=== PATIENT | female | born 1950 | race Caucasian/White ===

== ENCOUNTER → 2020-10-01 | Outpatient (CLI) | payer BC ==
--- NOTE | 2020-10-01 21:55 | MR ---
EXAMINATION TYPE: MR shoulder LT wo con DATE OF EXAM: 10/01/2020 COMPARISON: Radiographs 05/12/2020. HISTORY: LT Shoulder pain TECHNIQUE: Multiplanar, multisequence imaging of the left shoulder is performed without contrast. FINDINGS: Rotator Cuff: Moderate to high-grade articular surface, partial thickness tear of the supraspinatus t endon medially to anterior fibers on the background of moderate tendinosis. There is also moderate gr ayah partial-thickness tear of the subscapularis tendon cranial fibers. The infraspinatus and teres mi nor tendons are grossly intact. No significant muscular edema or atrophy. Acromioclavicular Joint: Moderate osteoarthritis. Glenohumeral Joint: Moderate osteoarthritis. Labrum: Degenerative tear of the superior anterior glenoid labrum. Biceps Tendon: The long head of biceps is in normal location within bicipital groove. Bone marrow signal: Mild to moderate degenerative cystic changes within the humeral head. Otherwise n o focal abnormal marrow signal is appreciated. Other: Small fluid within the subacromial subdeltoid bursa and moderate fluid within the subcoracoid bursa. IMPRESSION: Moderate to high-grade partial thickness tear of the supraspinatus tendon. Moderate grade partial-thickness tear of the subscapularis tendon. Associated bursitis.
== END | disposition home or self-care (01) ==
LOC: RADMRIMAIN 13:07
PROVIDERS: ATTEND Orthopaedic Surgery
DX: M75.112 Incomplete rotator cuff tear or rupture of left shoulder, not specified as traumatic (principal); M75.52 Bursitis of left shoulder

== ENCOUNTER → 2020-10-24 | Day surgery (SDC) | payer BC ==
[2020-10-22 13:33] VITALS: BMI 34.1
--- NOTE | 2020-10-23 10:54 | HP ---
HISTORY AND PHYSICAL CHIEF COMPLAINT: Left shoulder pain. 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 She notes she was getting something out of her dresser and felt a sharp pain. She has had pain with overhead use and at night ever since. She has tried medications in addition to a previous injection and therapy with persistence of her symptoms. PAST MEDICAL HISTORY: Significant for reflux disease, hypothyroidism, and arthritis. PAST SURGICAL HISTORY: Significant for hysterectomy, previous hip surgery, lumbar spine surgery and intestinal bypass. CURRENT MEDICATIONS: 1. Omeprazole. 2. Synthroid. 3. Tramadol. 4. Vitamin D. ALLERGIES: She has allergies to TUBERCULIN. FAMILY HISTORY: Significant for heart disease and diabetes along with cancer. SOCIAL HISTORY: Negative for current tobacco or alcohol use. REVIEW OF SYSTEMS: Sixteen-point review of systems otherwise reviewed and is noncontributory. PHYSICAL EXAMINATION: On examination, the patient is approximately 5 feet 5 inches, 200 pounds of endomorphic habitus. HEENT exam is nonfocal. Neck is supple. On examination of her left shoulder, she is tender about the anterior subacromial space. She has moderate crepitus. Active range of motion forward elevation 140 degrees, external rotation with the arm at side 55 degrees, and internal rotation to L1. Motor strength 5/5 for external rotation with arm at side, 5- over 5 for abduction. Impingement test, Neer test, and Speed test are positive. Her distal neurovascular exam appears intact to the left upper extremity. MRI report left shoulder obtained 10/01/2020 shows a high-grade partial-thickness tear involving the supraspinatus along with acromioclavicular joint arthritis. IMPRESSION: 1. Left shoulder impingement with high-grade partial-thickness rotator cuff tear. 2. Left acromioclavicular joint arthritis. RECOMMENDATIONS: I talked to the patient at length regarding her condition and treatment options. At this point, she is quite symptomatic and limited despite previous conservative measures. After thorough discussion, she opts to proceed with surgery. We will plan to proceed with arthroscopic evaluation, probable subacromial decompression, rotator cuff debridement versus repair, and possible distal clavicular resection. Risks and benefits were discussed at length in layman's terms. We will likely perform that as an outpatient procedure. LILIBETHODL / IJN: [id number] /
[~2020-10-24] MED LIST: DEXAMETHASONE SOD PHOSPHATE 4 MG/ML 1 ML VIAL IV ONE; DEXAMETHASONE SOD PHOSPHATE 4 MG/ML 1 ML VIAL ONE; EPINEPHrine (PF) 1 ML in SODIUM CHLORIDE 0.9% IRRIGATIO 3,000 ML IRRIGATION ONE; GLYCOPYRROLATE 0.2 MG/ML 2 ML VIAL ONE; HYDROmorphone 0.5 MG/0.5 ML SYRINGE IVP PRN; LACTATED RINGERS 1,000 ML IV ONE; LACTATED RINGERS 1,000 ML IV SCH; LIDOCAINE 1% (10MG/ML) FOR IV START INTRADERMA PRN; LIDOCAINE 1% INJ 10MG/ML (20 ML MDV) ONE; MIDAZOLAM 2 MG/2 ML VIAL IV PRN; MIDAZOLAM 2 MG/2 ML VIAL IVP ONE; NEOSTIGMINE 1 MG/ML 10 ML VIAL ONE; ONDANSETRON 4 MG/2 ML VIAL IVP ONE; ONDANSETRON 4 MG/2 ML VIAL ONE; PROPOFOL 10 MG/ML 20 ML VIAL IV ONE; ROCURONIUM 10 MG/ML (5 ML VIAL) IV ONE; ROPIVACAINE 5 MG/ML 30 ML VIAL ONE; WATER FOR INJECTION, STERILE 10 ML VIAL IV ONE; ePHEDrine SULFATE/0.9% NACL/PF 50 MG/5 ML SYRINGE IV ONE; fentaNYL (PF) 50 MCG/ML 2 ML AMP IVP ONE
--- NOTE | 2020-10-24 09:39 | P.OP ---
Date of Procedure: 10/24/20 Preoperative Diagnosis: Symptomatic left rotator cuff tear/impingement/acromioclavicular joint arthritis Postoperative Diagnosis: Same in addition to high-grade partial-thickness tear long head of the biceps Procedure(s) Performed: Left shoulder arthroscopic subacromial decompression/distal clavicular resection/biceps tenotomy/rotator cuff repair Implants: Arthrex 5.5 mm swivel lock anchor 3 Anesthesia: DIANAA, regional Surgeon: Robin Brown Covering And Lining Supervisor #1: Kory uBnn Estimated Blood Loss (ml): 10 Pathology: none sent Condition: stable Disposition: PACU Indications for Procedure: The patient's a 70-year-old female who presents with persistent/progressive left shoulder pain despite previous conservative treatment. A discussion of the risks and benefits of operative intervention versus continued conservative measu res was made with patient she opted to proceed with surgery. Operative risks to include infection, neurovascular injury, development of blood clots, possible tendon rerupture, possible postoperative stiffness and need for subsequent procedures was discussed. Informed consent was obtained. Operative Findings: As below Description of Procedure: The patient was brought to the operating room, and after induction of general anesthesia was placed in a beachchair position. A preoperative interscalene block was placed for postoperative analgesia. I examined the left shoulder. There was no gross block to passive motion or gross glenohumeral instability. The left upper extremity was prepped and draped in normal fashion. The bony outlines the acromion, distal clavicle, and coracoid process were outlined with a skin marker. The glenohumeral joint was inflated with 50 mL of saline utilizing a spinal needle from posterior approach. A posterior portal was made through a 5 mm skin incision 1 cm medial and inferior to the posterior lateral border time. A blunt trocar was used to easily into the joint. Diagnostic arthroscopy was performed. An anterior portal was made just lateral to the coracoid process entering the joint above the subscapularis tendon. The subscapularis tendon appeared to be intact. Anterior labrum was intact. S ignificant calcium deposition was noted along with synovitis. This was debrided with a motorized shaver. The inferior recess was inspected. The posterior labrum was intact. There was a high-grade partial-thickness tear of the long head of the biceps involving interarticular portion. It was elected to proceed with release at this point. This was released from the superior labrum with electrocautery and was allowed to retract to the bicipital groove. On inspection the rotator cuff, a full-thickness tear involving the supraspinatus was noted without significant retraction. The arthroscope was placed into the subacromial space. A lateral portal was made 2 centimeters inferior to the anterior lateral border of the acromion. The rotator cuff was then mobilized with a traction suture. This was then easily brought back to the greater tuberosity. The soft tissue on the undersurface of the acromion was debrided with a motorized shaver and electrocautery clearly defining the anterior medial and lateral borders as well as the distal clavicle. An anterior inferior acromioplasty was performed with a motorized leesa starting anterolateral, then extending this posteriorly, then extending this medially. I converted to a flat acromion and this was verified in the posterior and lateral viewing portals. The distal 4 mm of clavicle was resected as there was significant chondrocalcin osis of the acromioclavicular joint along with arthritis. The greater tuberosity was lightly decorticating with a shaver down to a bleeding bony surface. An accessory superior lateral portal was made just off the lateral edge of the acromion for anchor placement. 1 anchor was then placed just off the articular surface with the appropriate starting awl. A 5.5 mm swivel lock anchor preloaded with 2 pieces of #2 fiber tape were placed. Good purchase was obtained. These fiber tapes were then passed the rotator cuff with a scorpion suture passer. A lateral row was created crisscrossing these tapes. 5.5 mm swivel lock anchors x2 were placed laterally. Good purchase was obtained. Final arthroscopic view showed adequate compression at the footprint. The arthroscope was then removed. The portals were closed with simple 3-0 nylon sutures. A sterile dressing was applied in addition to a sling. The patient was then awoken from general anesthesia and transferred to recovery room in good condition. Blood loss was estimated at 10 mL. No complications were incurred. Sponge and needle counts were correct in the case. Greg ALSTON assisted and the major components of the case to include arm positioning, anchor placement, and rotator cuff repair.
[2020-10-24 09:44] VITALS: TEMP 97
[2020-10-24 11:42] VITALS: BP 125/76; PULSE 56; RESP 17
--- NOTE | 2020-10-24 14:12 | P.ANPRN ---
Procedure Note - Anesthesia - Nerve Block Performed Left Interscalene Single Time Out Performed: Yes ([id number]) Date of Procedure: 10/24/20 Procedure Start Time: Procedure Stop Time: Location of Patient: PreOp Indication: Acute Post-Operative Pain, Dx/Pain Location (Left Shoulder), Requested by Surgeon Specifically requested for management of pain by : Robin Brown Sedation Type: Sedate with meaningful contact maintained Preparation: Sterile Prep Position: Supine Catheter: None Needle Types: Pajunk (4 inch) Needle Gauge: 21 Ultrasound used to visualize needle placement: Yes Ultrasound used to observe medication spread: Yes Injectate: 0.5% Ropivacaine (see comment for volume) (30cc and decadron 4 mg) Blood Aspirated: No Pain Paresthesia on Injection Noted: No Resistance on Injection: Normal Image Stored and Saved: Yes Events: Uneventful and Well Tolerated
== END | disposition home or self-care (01) ==
LOC: OR 06:05
PROVIDERS: ATTEND Orthopaedic Surgery
DX: M75.102 Unspecified rotator cuff tear or rupture of left shoulder, not specified as traumatic (principal); M25.812 Other specified joint disorders, left shoulder; M19.012 Primary osteoarthritis, left shoulder; K21.9 Gastro-esophageal reflux disease without esophagitis; E03.9 Hypothyroidism, unspecified; Z90.710 Acquired absence of both cervix and uterus; Z90.49 Acquired absence of other specified parts of digestive tract; Z98.890 Other specified postprocedural states; Z83.3 Family history of diabetes mellitus; Z82.49 Family history of ischemic heart disease and other diseases of the circulatory system; Z80.9 Family history of malignant neoplasm, unspecified; Z79.890 Hormone replacement therapy; Z79.891 Long term (current) use of opiate analgesic; Z79.899 Other long term (current) drug therapy; Z88.8 Allergy status to other drugs, medicaments and biological substances
CPT/HCPCS: 64415; 76942; 86900; 86901; 84132; 86850; 29826; 29827; 29824; C1713; J2250; J1100; J2710; J0690; J2405; J0171; J2001; J3010; J2795; J2704

== ENCOUNTER 2021-12-06 00:49 | Emergency (ER) | payer BC ==
[2021-12-06 01:00] VITALS: BP 167/92; PULSE 82; RESP 18; TEMP 97.3
[2021-12-06] MEDS ORDERED: BENZONATATE 100 MG CAP PO STA (01:12)
[2021-12-06] MEDS ORDERED: ERYTHROMYCIN 5 MG/GM OPHTH OINT 3.5 GM TUBE BOTH EYES STA (01:13)
--- NOTE | 2021-12-06 01:39 | ED ---
URI HPI - General Chief Complaint: Upper Respiratory Infection Stated Complaint: Eye Problems, Cough Time Seen by Provider: 12/06/21 00:55 Source: patient, RN notes reviewed Mode of arrival: ambulatory Limitations: no limitations - History of Present Illness Initial Comments: This is a pleasant 71-year-old female who started with symptoms of a common cold on Tuesday. Patient ended up going to urgent care and was told that this was a viral infection and would need to run its course. Patient has a nonproductive cough, clear runny nose, now the patient is concerned because she has bilateral eye redness with some discharge noted. No visual acuity problems. No chest pain. No shortness of breath. Patient continues to have a cough. Patient immunized against COVID-19. No headache, no fever or chills, no changes in vision or hearing, no sore throat or difficulty with speech, no neck pain, no chest pain or shortness of breath, no abdominal pain, no nausea or vomiting, no changes in urination or bowel movements, no numbness or tingling, no extremity pain, no skin rashes or lesions. MD Complaint: cough, rhinorrhea, nasal congestion, other (Bilateral eye redness and discharge) - Related Data Home Medications Medication Instructions Recorded Confirmed Ferrous Sulfate [Feosol] 325 mg PO DAILY 10/22/20 10/24/20 Levothyroxine Sodium [Synthroid] 150 mcg PO DAILY 10/22/20 10/24/20 Omeprazole 20 mg PO DAILY 10/22/20 10/24/20 Tramadol 50 mg PO Q4H PRN 10/22/20 10/24/20 Acetaminophen Tab [Tylenol Tab] 1,000 mg PO Q6HR PRN 10/24/20 10/24/20 Previous Rx's Medication Instructions Recorded HYDROcodone/APAP 5-325MG [[place] 1 tab PO Q6HR PRN #21 tab 10/24/20 5-325] Benzonatate [Tessalon Perles] 200 mg PO TID PRN #30 capsule 12/06/21 Erythromycin Ophth Oint [Romycin 1 applic BOTH EYES QID 7 Days #3.5 12/06/21 Ophth Oint] gm Allergies Allergy/AdvReac Type Severity Reaction Status Date / Time tb skin test Allergy Swelling Uncoded 12/06/21 00:56 Review of Systems ROS Statement: Those systems with pertinent positive or pertinent negative responses have been documented in the HPI. ROS Other: All systems not noted in ROS Statement are negative. Past Medical History Past Medical History: GERD/Reflux, Thyroid Disorder History of Any Multi-Drug Resistant Organisms: None Reported Past Surgical History: Bariatric Surgery, Hysterectomy, Orthopedic Surgery, Tonsillectomy Additional Past Surgical History / Comment(s): right hip, left shoulder Past Psychological History: No Psychological Hx Reported Smoking Status: Never smoker Past Alcohol Use History: None Reported Past Drug Use History: None Reported General Exam - General Exam Comments Initial Comments: Patient appears to be mildly ill, however, is adequately hydrated, capillary refill less than 2 seconds. Nontoxic appearing. Vital signs noted. Cranial nerves II through XII grossly intact Limitations: no limitations General appearance: alert, in no apparent distress Head exam: Present: atraumatic, normocephalic, normal inspection Eye exam: Present: normal appearance, PERRL, EOMI. Absent: scleral icterus, conjunctival injection, periorbital swelling ENT exam: Present: normal exam, normal oropharynx, mucous membranes moist, TM's normal bilaterally, normal external ear exam, other (Clear runny nose noted. No evidence of purulent discharge. No sinus tenderness. Airway is patent. No tonsillar adenopathy or exudate). Absent: mucous membranes dry Expanded Ear exam: Present: normal external inspection Mouth exam: Present: normal external inspection. Absent: drooling, trismus, muffled voice, tongue normal, tongue elevation, laceration Throat exam: normal inspection. negative: tonsillar erythema, tonsillomegaly, tonsillar exudate, R peritonsillar mass, L peritonsillar mass Neck exam: Present: normal inspection, full ROM. Absent: tenderness, meningismus, lymphadenopathy Respiratory exam: Present: normal lung sounds bilaterally. Absent: respiratory distress, wheezes, rales, rhonchi, stridor Cardiovascular Exam: Present: regular rate, normal rhythm, normal heart sounds. Absent: systolic murmur, diastolic murmur, rubs, gallop, clicks GI/Abdominal exam: Present: soft, normal bowel sounds. Absent: distended, tenderness, guarding, rebound, rigid Extremities exam: Present: normal inspection, full ROM, normal capillary refill. Absent: tenderness, pedal edema, joint swelling, calf tenderness Back exam: Present: normal inspection Neurological exam: Present: alert, oriented X3, CN II-XII intact Psychiatric exam: Present: normal affect, normal mood Skin exam: Present: warm, dry, intact, normal color. Absent: rash Course Vital Signs 12/06/21 00:56 Temperature 97.3 F L Pulse Rate 82 Respiratory 18 Rate Blood Pressure 167/92 O2 Sat by Pulse 96 Oximetry Medical Decision Making - Medical Decision Making Patient's presentation most consistent with viral upper respiratory infection. Chest x-ray was clear. Discussed the possibility of other etiologies to include atypicals. Patient in no distress. Oxygen saturation on room air was 100%. COVID-19 testing was negative. No respiratory distress. There was no evidence of purulent nasal drainage. We'll treat conservatively with cough suppressant. Patient did have bilateral conjunctivitis which is likely viral. We'll treat with erythromycin ointment for preventative reasons. 1 cm every 6 hours for 5-7 days. Discussed treatment plan with the patient. All questions answered. Patient was told to return to the ER for any signs or symptoms worsen. Told to return immediately if any other problems arise. All questions answered. Treatment plan discussed. Patient in agreement Every effort has been made to ensure accuracy of this dictation. However, due to the limitations of electronic medical records and dictation devices, errors in charting still occur. The case was discussed in detail with ED attending physician. Presentation, findings, treatment plan discussed in detail. Dairy Technician Dr. Gonzalez - Lab Data Lab Results 12/06/21 Range/Units 01:00 Coronavirus (PCR) Not Detected (Not Detectd) - Radiology Data Radiology results: pending, image reviewed (No evidence of acute pathology as read by me. Awaiting radiology interpretation. Study was reviewed by the ED attending physician as well.) Disposition Clinical Impression: Viral upper respiratory tract infection with cough, Conjunctivitis Narrative: Conjunctivitisboth eyes, likely viral Disposition: HOME SELF-CARE Condition: Stable Instructions (If sedation given, give patient instructions): Upper Respiratory Infection (ED), Conjunctivitis (ED) Additional Instructions: Follow-up with your regular physician as directed. Return to the ER immediately if any symptoms worsen, new symptoms arise, or any other problems develop. Is patient prescribed a controlled substance at d/c from ED?: No Referrals: oDm Castellano DO [Primary Care Provider] - 12/09/21 Time of Disposition: 02:50
--- NOTE | 2021-12-06 04:50 | XR ---
EXAM: XR Chest, 2 Views CLINICAL HISTORY: Cough TECHNIQUE: Frontal and lateral views of the chest. COMPARISON: No relevant prior studies available. FINDINGS: Lungs: Slightly prominent interstitial markings in the lung bases, likely mild emphysema. No acute focal infiltrate is identified. Pleural space: Unremarkable. No pneumothorax. Heart: There is a 9 cm hiatal hernia projecting behind the heart. The cardiac silhouette is mildly enlarged. Mediastinum: Unremarkable. Bones/joints: Mild to moderate degenerative changes throughout the spine. No acute fracture is seen. Upper abdomen: No pneumoperitoneum is seen under the diaphragm. IMPRESSION: 1. There is a 9 cm hiatal hernia projecting behind the heart. 2. Slightly prominent interstitial markings in the lung bases, likely mild emphysema. No acute focal infiltrate is identified.
== END 2021-12-06 03:27 | disposition home or self-care (01) ==
LOC: EC 00:49
DX: J06.9 Acute upper respiratory infection, unspecified (principal); H10.9 Unspecified conjunctivitis; K21.9 Gastro-esophageal reflux disease without esophagitis; E07.9 Disorder of thyroid, unspecified; Z79.890 Hormone replacement therapy; Z79.899 Other long term (current) drug therapy; Z20.822 Contact with and (suspected) exposure to COVID-19
CPT/HCPCS: 71046; 87635; 99283

== ENCOUNTER 2022-09-04 16:45 | Observation (INO) | payer BC, MEDICARE ==
--- NOTE | 2022-09-04 17:10 | ED ---
Dizziness HPI - General Chief Complaint: Dizziness Stated Complaint: Dizziness Time Seen by Provider: 09/04/22 16:55 Source: patient Mode of arrival: ambulatory Limitations: no limitations - History of Present Illness Initial Comments: 72-year-old female presents to the emergency department from urgent care. States that she has had intermittent episodes of dizziness over the past couple of weeks. Had a significant episode last night that lasted approximately 2 minutes. It was sudden onset. She states that the room was spinning around her. It subsequently ceased on its own without any intervention. She has no history of vertigo. She went to urgent care and they recommended a cardiac workup prior to initiating this medication. She denies any chest pain or shortness of breath. No cardiac history. She reports that her symptoms have completely resolved at this time. No other alleviating, precipitating or modifying factors - Related Data Home Medications Medication Instructions Recorded Confirmed Ferrous Sulfate [Iron (65 MG 325 mg PO DAILY 10/22/20 09/04/22 Elemental)] Levothyroxine Sodium [Synthroid] 150 mcg PO DAILY 10/22/20 09/04/22 Omeprazole 20 mg PO DAILY 10/22/20 09/04/22 Calcium Carbonate [Calcium] 600 mg PO DAILY 09/04/22 09/04/22 Cyanocobalamin (Vitamin B-12) 1,000 mcg PO DAILY 09/04/22 09/04/22 [Vitamin B-12] Magnesium Oxide [Mag-Ox] 400 mg PO DAILY 09/04/22 09/04/22 Previous Rx's Medication Instructions Recorded Aspirin 81 mg PO DAILY #90 tab 09/06/22 Atorvastatin [Lipitor] 40 mg PO HS #90 tab 09/06/22 Clopidogrel [Plavix] 75 mg PO DAILY #30 tab 09/06/22 Meclizine [Antivert] 25 mg PO TID PRN #90 tab 09/06/22 Allergies Allergy/AdvReac Type Severity Reaction Status Date / Time tb skin test Allergy Swelling Uncoded 09/04/22 17:56 Review of Systems ROS Statement: Those systems with pertinent positive or pertinent negative responses have been documented in the HPI. ROS Other: All systems not noted in ROS Statement are negative. Past Medical History Past Medical History: GERD/Reflux, Thyroid Disorder History of Any Multi-Drug Resistant Organisms: None Reported Past Surgical History: Bariatric Surgery, Hysterectomy, Orthopedic Surgery, Tonsillectomy Additional Past Surgical History / Comment(s): right hip, left shoulder Past Psychological History: No Psychological Hx Reported Smoking Status: Never smoker Past Alcohol Use History: None Reported Past Drug Use History: None Reported - Past Family History Mother Family Medical History: Coronary Artery Disease (CAD) General Exam Limitations: no limitations General appearance: alert, in no apparent distress Head exam: Present: atraumatic, normocephalic, normal inspection Eye exam: Present: normal appearance, PERRL, EOMI. Absent: scleral icterus, conjunctival injection, periorbital swelling ENT exam: Present: normal exam, mucous membranes moist Neck exam: Present: normal inspection. Absent: tenderness, meningismus, lymphadenopathy Respiratory exam: Present: normal lung sounds bilaterally. Absent: respiratory distress, wheezes, rales, rhonchi, stridor Cardiovascular Exam: Present: regular rate, normal rhythm, normal heart sounds. Absent: systolic murmur, diastolic murmur, rubs, gallop, clicks GI/Abdominal exam: Present: soft, normal bowel sounds. Absent: distended, tenderness, guarding, rebound, rigid Extremities exam: Present: normal inspection, full ROM, normal capillary refill. Absent: tenderness, pedal edema, joint swelling, calf tenderness Back exam: Present: normal inspection Neurological exam: Present: alert, oriented X3, CN II-XII intact Psychiatric exam: Present: normal affect, normal mood Skin exam: Present: warm, dry, intact, normal color. Absent: rash Course Vital Signs 09/04/22 09/04/22 09/04/22 16:53 17:44 19:23 Temperature 98.3 F Pulse Rate 64 59 L 50 L Respiratory 20 19 14 Rate Blood Pressure 179/99 165/115 154/85 O2 Sat by Pulse 99 97 Oximetry 09/04/22 22:09 Temperature Pulse Rate 64 Respiratory 14 Rate Blood Pressure 134/87 O2 Sat by Pulse 98 Oximetry EKG Findings - EKG Comments: EKG Findings:: EKG demonstrates sinus bradycardia with a rate of 52. OR interval is 247. QRS 11. QTC of 394. No acute ST segment elevations or depressions Medical Decision Making - Medical Decision Making Was pt. sent in by a medical professional or institution (, PA, FRONT DESK ADMIN, urgent care, hospital, or long-term...) When possible be specific @ -Urgent care Did you speak to anyone other than the patient for history (EMS, parent, family, police, friend...)? What history was obtained from this source @ -No Did you review nursing and triage notes (agree or disagree)? Why? @ -I reviewed and agree with nursing and triage notes Were old charts reviewed (outside hosp., previous admission, EMS record, old EKG, old radiological studies, urgent care reports/EKG's, long-term records)? Report findings @ -No old charts were reviewed Differential Diagnosis (chest pain, altered mental status, abdominal pain women, abdominal pain men, vaginal bleeding, weakness, fever, dyspnea, syncope, he adache, dizziness, GI bleed, back pain, seizure, CVA, palpatations, mental health, musculoskeletal)? @ -Differential Dizziness: Benign paroxysmal positional Vertigo, Menieres disease, otitis media, acoustic neuroma, vertebrobasilar insufficiency, cerebellar stroke, encephalitis, hypovolemic, arrhythmia, coronary artery syndrome, anemia, this is not meant to be an all-inclusive list EKG interpreted by me (3pts min.). @ -As above X-rays interpreted by me (1pt min.). @ -Yes CT interpreted by me (1pt min.). @ -Yes U/S interpreted by me (1pt. min.). @ -None done What testing was considered but not performed or refused? (CT, X-rays, U/S, labs)? Why? @ -None What meds were considered but not given or refused? Why? @ -None Did you discuss the management of the patient with other professionals (professionals i.e. , PA, FRONT DESK ADMIN, lab, RT, psych nurse, social worker assistant, export sales assistant, teacher, fare enforcement officer, case manager specialist)? Give summary @ -Admitting physician, Dr. Felix Was smoking cessation discussed for >3mins.? @ -No Was critical care preformed (if so, how long)? @ -No Were there social determinants of health that impacted care today? How? (Homelessness, low income, unemployed, alcoholism, drug addiction, transportation, low edu. Level, literacy, decrease access to med. care, nursing home, rehab)? @ -No Was there de-escalation of care discussed even if they declined (Discuss DNR or withdrawal of care, Hospice)? DNR status @ -No What co-morbidities impacted this encounter? (DM, HTN, Smoking, COPD, CAD, Cancer, CVA, ARF, Chemo, Hep., AIDS, mental health diagnosis, sleep apnea, morbid obesity)? @ -None Was patient admitted / discharged? Hospital course, mention meds given and route, prescriptions, significant lab abnormalities, going to OR and other pertinent info. @ -Upon arrival patient was placed into room 2. Thorough history and physical exam was performed. IV is established. Laboratory studies are conducted. Albumin low at 2.4. Potassium 3.3. Calcium low at 6.6 however this is corrected and normal. CT CT angiography is performed. CT angiography demonstrates vertebrobasilar insufficiency concerns. There is also a 2 cm left parotid mass. Results discussed the patient. Spoke with Dr. Felix who will admit the patient with neurology and ENT to consult. Patient was agreeable to this plan and is currently awaiting a bed on the floor in stable condition Undiagnosed new problem with uncertain prognosis? @ -Yes Drug Therapy requiring intensive monitoring for toxicity (Heparin, Nitro, Insulin, Cardizem)? @ -No Were any procedures done? @ -No Diagnosis/symptom? @ -Acute vertigo, possible vertebrobasilar insufficiency Acute, or Chronic, or Acute on Chronic? @ -Acute Uncomplicated (without systemic symptoms) or Complicated (systemic symptoms)? @ -Complicated Side effects of treatment? @ -No Exacerbation, Progression, or Severe Exacerbation? @ -No Poses a threat to life or bodily function? How? (Chest pain, [place], [place], pneumonia, PE, COPD, DKA, ARF, appy, cholecystitis, CVA, Diverticulitis, Homicidal, Suicidal, threat to staff... and all critical care pts) @ -Yes - Lab Data Result diagrams: 09/05/22 07:40 09/05/22 07:40 Lab Results 09/04/22 09/04/22 09/04/22 Range/Units 18:10 18:10 19:20 WBC 6.0 (3.8-10.6) k/uL RBC 4.45 (3.80-5.40) m/uL Hgb 13.9 (11.4-16.0) gm/dL Hct 41.6 (34.0-46.0) % MCV 93.5 (80.0-100.0) fL MCH 31.1 (25.0-35.0) pg MCHC 33.3 (31.0-37.0) g/dL RDW 12.4 (11.5-15.5) % Plt Count 179 (150-450) k/uL MPV 8.8 Neutrophils % 50 % Lymphocytes % 38 % Monocytes % 6 % Eosinophils % 3 % Basophils % 1 % Neutrophils # 3.0 (1.3-7.7) k/uL Lymphocytes # 2.3 (1.0-4.8) k/uL Monocytes # 0.3 (0-1.0) k/uL Eosinophils # 0.2 (0-0.7) k/uL Basophils # 0.0 (0-0.2) k/uL PT 10.1 (9.0-12.0) sec INR 0.9 (<1.2) Sodium (137-145) mmol/L Potassium (3.5-5.1) mmol/L Chloride (98-107) mmol/L Carbon Dioxide (22-30) mmol/L Anion Gap mmol/L BUN (7-17) mg/dL Creatinine (0.52-1.04) mg/dL Est GFR (CKD-EPI)AfAm (>60 ml/min/1.73 sqM) Est GFR (CKD-EPI)NonAf (>60 ml/min/1.73 sqM) Glucose (74-99) mg/dL Calcium (8.4-10.2) mg/dL Ionized Calcium Kei (4.5-5.3) mg/dL Total Bilirubin (0.2-1.3) mg/dL AST (14-36) U/L ALT (4-34) U/L Alkaline Phosphatase (38-126) U/L Troponin I <0.012 (0.000-0.034) ng/mL Total Protein (6.3-8.2) g/dL Albumin (3.5-5.0) g/dL 09/04/22 09/04/22 Range/Units 19:20 21:18 WBC (3.8-10.6) k/uL RBC (3.80-5.40) m/uL Hgb (11.4-16.0) gm/dL Hct (34.0-46.0) % MCV (80.0-100.0) fL MCH (25.0-35.0) pg MCHC (31.0-37.0) g/dL RDW (11.5-15.5) % Plt Count (150-450) k/uL MPV Neutrophils % % Lymphocytes % % Monocytes % % Eosinophils % % Basophils % % Neutrophils # (1.3-7.7) k/uL Lymphocytes # (1.0-4.8) k/uL Monocytes # (0-1.0) k/uL Eosinophils # (0-0.7) k/uL Basophils # (0-0.2) k/uL PT (9.0-12.0) sec INR (<1.2) Sodium 141 (137-145) mmol/L Potassium 3.3 L (3.5-5.1) mmol/L Chloride 117 H (98-107) mmol/L Carbon Dioxide 21 L (22-30) mmol/L Anion Gap 3 mmol/L BUN 14 (7-17) mg/dL Creatinine 0.58 (0.52-1.04) mg/dL Est GFR (CKD-EPI)AfAm >90 (>60 ml/min/1.73 sqM) Est GFR (CKD-EPI)NonAf >90 (>60 ml/min/1.73 sqM) Glucose 74 (74-99) mg/dL Calcium 6.6 L (8.4-10.2) mg/dL Ionized Calcium Kei 5.1 (4.5-5.3) mg/dL Total Bilirubin 0.5 (0.2-1.3) mg/dL AST 22 (14-36) U/L ALT 18 (4-34) U/L Alkaline Phosphatase 35 L (38-126) U/L Troponin I (0.000-0.034) ng/mL Total Protein 4.6 L (6.3-8.2) g/dL Albumin 2.4 L (3.5-5.0) g/dL Disposition Clinical Impression: VBI (vertebrobasilar insufficiency), Parotid mass Disposition: ADMITTED IP TO THIS HOSP Condition: Stable Is patient prescribed a controlled substance at d/c from ED?: No Time of Disposition: 21:39 Decision to Admit Reason: Admit from EC Decision Date: 09/04/22 Decision Time: 21:39
[2022-09-04] MEDS ORDERED: SODIUM CHLORIDE 0.9% 500 ML 500 ML IV STA (17:55)
[2022-09-04 18:42] LABS: Basophils % (A) 1 %; Eosinophils # (A) 0.2 k/uL (0-0.7); Eosinophils % (A) 3 %; HCT 41.6 % (34.0-46.0); HGB 13.9 gm/dL (11.4-16.0); Lymphocytes # (A) 2.3 k/uL (1.0-4.8); Lymphocytes % (A) 38 %; MCH 31.1 pg (25.0-35.0); MCHC 33.3 g/dL (31.0-37.0); MCV 93.5 fL (80.0-100.0); Mean Platelet Volume 8.8; Monocytes # (A) 0.3 k/uL (0-1.0); Monocytes % (A) 6 %; Neutrophils % (A) 50 %; Platelet Count 179 k/uL (150-450); RBC 4.45 m/uL (3.80-5.40); RDW 12.4 % (11.5-15.5)
[2022-09-04 19:40] LABS: INR 0.9 (<1.2); Prothrombin Time 10.1 sec (9.0-12.0)
[2022-09-04 20:06] LABS: ALT 18 U/L (4-34); AST 22 U/L (14-36); African American GFR (CKD) >90 (>60 ml/min/1.73 sqM); Albumin 2.4 g/dL (3.5-5.0); Alkaline Phosphatase 35 U/L (38-126); Anion Gap 3 mmol/L; Blood Urea Nitrogen 14 mg/dL (7-17); Calcium 6.6 mg/dL (8.4-10.2); Carbon Dioxide 21 mmol/L (22-30); Chloride 117 mmol/L (98-107); Glucose 74 mg/dL (74-99); Non-African American GFR(CKD) >90 (>60 ml/min/1.73 sqM); Potassium 3.3 mmol/L (3.5-5.1); Sodium 141 mmol/L (137-145); Total Bilirubin 0.5 mg/dL (0.2-1.3); Total Protein 4.6 g/dL (6.3-8.2)
--- NOTE | 2022-09-04 21:01 | CT ---
EXAMINATION TYPE: CT brain wo con DATE OF EXAM: 09/04/2022 COMPARISON: None HISTORY: Dizziness, elevated BP CT DLP: 1117.6 mGycm Automated exposure control for dose reduction was used. FINDINGS: There is no evidence of midline shift or mass effect. Ventricular system compatible with the patient' s age. Hypertrophic and degenerative changes of the spine. Changes of chronic sinusitis. Craniocervic al junction history is low-lying cerebellar tonsils at the level of foramen magnum.. Orbits are symme tric. IMPRESSION: NO ACUTE HEMORRHAGE OR MASS EFFECT. IF CONCERN FOR ACUTE ISCHEMIA CORRELATE WITH MRI CLINICALLY WA RRANTED.
--- NOTE | 2022-09-04 21:18 | CT ---
EXAMINATION TYPE: CT angio head neck DATE OF EXAM: 09/04/2022 HISTORY: Dizziness, elevated BP COMPARISON: CT brain 09/04/2022 CT DLP: 526.8 mGycm. Automated Exposure Control for Dose Reduction was Utilized. TECHNIQUE: CTA scan of the head and neck is performed with IV Contrast, patient injected with 65 mL of Isovue 370, axial images are obtained, coronal and sagittal reformatted images are reviewed. 3D re constructed images are created on an independent workstation and reviewed. FINDINGS: Lung apices are clear. Origins of the great vessels are patent off the aortic arch. There i s variant anatomy with the left vertebral artery originating directly from the aortic arch. Visualize d subclavian arteries are patent. There is marked ectasia of the brachiocephalic artery. Common carotid arteries are patent. Carotid bifurcations are widely patent with no significant stenos is. There is mild atherosclerotic plaque on the right. Marked ectasia of the distal right ICA. Caroti d arteries appear to be patent to the level of the siphon. The basilar artery is markedly thinned diminutive. Left vertebral artery slightly dominant also with markedly diminutive basilar and vertebral arteries. SNUFF CONTAINER INSPECTOR appears be patent bilaterally. Bilateral anterior cerebral arteries are patent. There is a aplastic A1 segment on the right. Perihil ar to be filling of the anterior cerebral arteries bilaterally from the left circulation. Bilateral M [place] appear to be patent. Hypertrophic and degenerative changes spine with facet arthropathy. 2 cm left parotid gland mass. IMPRESSION: 1. Markedly diminutive vertebrobasilar system could be associated with vertebrobasilar insufficiency correlate clinically. 2. 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 Bilateral ACAs appear to be supplied from the left circulation. 3. Bilateral carotid bifurcations are widely patent. No significant stenosis.. 4. There is a 2 cm left parotid gland mass. Ultrasound is recommended as well as ENT correlation for neoplasm. NASCET criteria was used in interpretation of this exam?
[2022-09-04] MEDS ORDERED: NALOXONE 0.4 MG/ML 1 ML VIAL IV PRN (21:39)
[2022-09-04] MEDS: SODIUM CHLORIDE 0.9% 1,000 ML IV SCH (23:15)
--- NOTE | 2022-09-05 02:32 | P.HPIM ---
History of Present Illness H&P Date: 09/04/22 The patient is a 72-year-old female with a PMH of hypothyroidism and GERD who presented to the emergency room with complaints of gradually worsening dizziness. The patient states that she's been experiencing intermittent dizziness over the past 3-4 months. She reports that it was initially mild and would occur when she would attempt to walk where she felt that her gait was unsteady. She reports that over the past week, she has developed episodes of vertigo with lightheadedness, lasting a few minutes at a time, with numerous episodes. She reports last night she was with her family and had a severe episode where she became very lightheaded and had another episode of vertigo which prompted her to seek further care. She reports that over the past 1-2 months she has had a decrease in her oral intake as she has been more busy with work and with things at home.She denied experiencing falls. She also denied focal weakness, numbness, tingling. Denied facial asymmetry or speech impairment. CT angiogram of head and neck in the emergency room revealed diminutive vertebrobasilar system which could be associated with vertebrobasilar insufficiency. There was also a 2 cm left parotid gland mass with ultrasound recommended. EKG revealed sinus bradycardia at 52 bpm with sinus arrhythmia and first-degree AV block as reviewed by me. Laboratory evaluation was remarkable for WBC count of 6.0, hemoglobin 13.9, platelets 179, sodium 141, potassium 3.3, chloride 117, CO2 21, alk phos 35, albumin 2.4, with ionized calcium 5.1. Review of systems: Pertinent positives and negatives as discussed in HPI, a complete review of systems was performed and all other systems are negative. Physical examination: Vital signs reviewed General: non toxic, no distress, appears at stated age, obese Derm: no unusual rashes/lesions, warm Head: atraumatic, normocephalic, symmetric Eyes: EOMI, no lid lag, anicteric sclera, pupils equal round reactive to light ENT: Nose and ears atraumatic Neck: No cervical lymphadenopathy, trachea midline, supple Mouth: no lip lesion, mucus membranes moist Cardiovascular: S1S2 reg, no murmur, positive dorsalis pedis pulse bilateral, no edema Lungs: CTA bilateral, no rhonchi, no rales, no accessory muscle use Abdominal: soft, nontender to palpation, no guarding Ext: muscle strength 5 out of 5 in all 4 extremities grossly, no gross muscle atrophy, no contractures, Neuro: CN II-XI grossly intact, no gross focal neuro deficits Psych: Alert, oriented, appropriate affect Assessment: Dizziness, suspect secondary to vertebrobasilar insufficiency Parotid gland mass Chronic conditions: Hypothyroidism, GERD Imaging: CT angiogram of head and neck in the emergency room revealed diminutive vertebrobasilar system which could be associated with vertebrobasilar insufficiency. There was also a 2 cm left parotid gland mass with ultrasound recommended. EKG revealed sinus bradycardia at 52 bpm with sinus arrhythmia and first-degree AV block as reviewed by me. Data Review: Laboratory evaluation was remarkable for WBC count of 6.0, hemoglobin 13.9, platelets 179, sodium 141, potassium 3.3, chloride 117, CO2 21, alk phos 35, albumin 2.4, with ionized calcium 5.1. Plan: Neurology consulted Fall precautions ENT consulted for parotid mass DVT prophylaxis: Heparin subcu The patient is admitted with an anticipated less than 2 midnight stay for evaluation of dizziness CODE STATUS: Full Code Discussed with: Patient Anticipated discharge date: In a.m. Anticipated discharge place: Home Past Medical History Past Medical History: GERD/Reflux, Thyroid Disorder History of Any Multi-Drug Resistant Organisms: None Reported Past Surgical History: Bariatric Surgery, Hysterectomy, Orthopedic Surgery, Tonsillectomy Additional Past Surgical History / Comment(s): right hip, left shoulder Past Anesthesia/Blood Transfusion Reactions: No Reported Reaction Past Psychological History: No Psychological Hx Reported Smoking Status: Never smoker Past Alcohol Use History: None Reported Past Drug Use History: None Reported - Past Family History Mother Family Medical History: Coronary Artery Disease (CAD) Medications and Allergies Home Medications Medication Instructions Recorded Confirmed Type Ferrous Sulfate [Feosol] 325 mg PO DAILY 10/22/20 09/04/22 History Levothyroxine Sodium [Synthroid] 150 mcg PO DAILY 10/22/20 09/04/22 History Omeprazole 20 mg PO DAILY 10/22/20 09/04/22 History Calcium Carbonate [Calcium] 600 mg PO DAILY 09/04/22 09/04/22 History Cyanocobalamin (Vitamin B-12) 1,000 mcg PO DAILY 09/04/22 09/04/22 History [Vitamin B-12] Magnesium Oxide [Mag-Ox] 400 mg PO DAILY 09/04/22 09/04/22 History Allergies Allergy/AdvReac Type Severity Reaction Status Date / Time tb skin test Allergy Swelling Uncoded 09/04/22 17:56 Physical Exam Vitals: Vital Signs Temp Pulse Resp BP Pulse Ox 09/04/22 22:09 64 14 134/87 98 09/04/22 19:23 50 L 14 154/85 97 09/04/22 17:44 59 L 19 165/115 09/04/22 16:53 98.3 F 64 20 179/99 99 Intake and Output 09/04/22 09/04/22 09/05/22 14:59 22:59 06:59 Other: Weight 92.986 kg Results CBC & Chem 7: 09/04/22 18:10 09/04/22 19:20 Labs: Abnormal Lab Results - Last 24 Hours (Table) 09/04/22 Range/Units 19:20 Potassium 3.3 L (3.5-5.1) mmol/L Chloride 117 H (98-107) mmol/L Carbon Dioxide 21 L (22-30) mmol/L Calcium 6.6 L (8.4-10.2) mg/dL Alkaline Phosphatase 35 L (38-126) U/L Total Protein 4.6 L (6.3-8.2) g/dL Albumin 2.4 L (3.5-5.0) g/dL Thrombosis Risk Factor Assmnt - Choose All That Apply Any of the Below Risk Factors Present?: Yes Each Factor Represents 1 point: Obesity (BMI >25) Each Risk Factor Represents 3 Points: Age 75 years or older Other congenital or acquired thrombophilia - If yes, enter type in comment: No Thrombosis Risk Factor Assessment Total Risk Factor Score: 4 Thrombosis Risk Factor Assessment Level: Moderate Risk
[2022-09-05] MEDS: HEPARIN SODIUM,PORCINE/PF 5,000 UNIT/0.5 ML SYRINGE SQ SCH ×3 (08:00→23:06)
[2022-09-05 08:02] LABS: Basophils % (A) 0 %; Eosinophils # (A) 0.2 k/uL (0-0.7); Eosinophils % (A) 5 %; HCT 37.4 % (34.0-46.0); HGB 12.6 gm/dL (11.4-16.0); Lymphocytes # (A) 1.7 k/uL (1.0-4.8); Lymphocytes % (A) 37 %; MCH 31.5 pg (25.0-35.0); MCHC 33.7 g/dL (31.0-37.0); MCV 93.4 fL (80.0-100.0); Monocytes # (A) 0.3 k/uL (0-1.0); Monocytes % (A) 6 %; Neutrophils # (A) 2.3 k/uL (1.3-7.7); Neutrophils % (A) 50 %; Platelet Count 165 k/uL (150-450); RBC 4.01 m/uL (3.80-5.40); RDW 12.3 % (11.5-15.5); WBC 4.6 k/uL (3.8-10.6)
[2022-09-05 08:14] LABS: Potassium 3.8 mmol/L (3.5-5.1)
[2022-09-05] MEDS: SODIUM CHLORIDE 0.9% 1,000 ML IV SCH ×2 (11:38→13:55)
--- NOTE | 2022-09-05 13:59 | P.PN ---
Subjective Progress Note Date: 09/05/22 Hospital Course: 72-year-old female with a PMH of hypothyroidism and GERD who presented to the emergency room with complaints of gradually worsening dizziness. CT angiogram of head and neck in the emergency room revealed diminutive vertebrobasilar system which could be associated with vertebrobasilar insufficiency. There was also a 2 cm left parotid gland mass with ultrasound recommended. EKG revealed sinus bradycardia at 52 bpm with sinus arrhythmia and first-degree AV block as r eviewed by me. Laboratory evaluation was remarkable for WBC count of 6.0, hemoglobin 13.9, platelets 179, sodium 141, potassium 3.3, chloride 117, CO2 21, alk phos 35, albumin 2.4, with ionized calcium 5.1. Subjective: Patient seen and examined at bedside. Occasionally still gets dizzy while re sting. She denies any chest pain, shortness of breath, abdominal pain, urinary or bowel complaints. Pertinent positives and negatives as discussed above, a complete review of systems was performed and all other systems are negative. Vitals Signs Reviewed. General: nontoxic, no distress, appears at stated age Derm: warm, dry Head: atraumatic, normocephalic, symmetric Eyes: EOMI, no lid lag, anicteric sclera Mouth: no lip lesion, mucus membranes moist Cardiovascular: S1S2 reg, no murmur Lungs: CTA bilateral, no rhonchi, no rales , no accessory muscle use Abdominal: soft, nontender to palpation, no guarding, no appreciable organomegaly Ext: no gross muscle atrophy, no edema, no contractures Neuro: CN II-XI grossly intact, no focal neuro deficits Psych: Alert, oriented, appropriate affect Data Reviewed Today: Pertinent Labs: WBC 4.6, hemoglobin 12.6, platelet 165, sodium 140, potassium 3.8, chloride 112, bicarb 23, glucose 110, creatinine 0.77 Assessment and Plan: Active: Dizziness, suspect secondary to vertebrobasilar insufficiency Parotid gland mass -Neurology is consulted -Pending brain MRI -ENT also consulted -Tissue ordered Resolved: Hypokalemia Metabolic acidosis Chronic: Hypothyroidism, GERD DVT ppx: Subcu heparin Code status: Full code Anticipated discharge place: Pending clinical course Anticipated discharge time: Pending clinical course Objective - Vital Signs Vital signs: Vital Signs Temp 97.8 F 09/05/22 07:30 Pulse 70 09/05/22 09:55 Resp 18 09/05/22 07:30 BP 124/72 09/05/22 09:55 Pulse Ox 97 09/05/22 07:30 FiO2 Intake & Output 09/04/22 09/05/22 09/05/22 18:59 06:59 18:59 Weight 92.986 kg 92.986 kg Other: Voiding Method Toilet # Voids 2 - Labs CBC & Chem 7: 09/05/22 07:40 09/05/22 07:40 Labs: Abnormal Lab Results - Last 24 Hours (Table) 09/04/22 09/05/22 Range/Units 19:20 07:40 Potassium 3.3 L (3.5-5.1) mmol/L Chloride 117 H 112 H (98-107) mmol/L Carbon Dioxide 21 L (22-30) mmol/L Glucose 110 H (74-99) mg/dL Calcium 6.6 L (8.4-10.2) mg/dL Alkaline Phosphatase 35 L (38-126) U/L Total Protein 4.6 L (6.3-8.2) g/dL Albumin 2.4 L (3.5-5.0) g/dL
--- NOTE | 2022-09-05 17:43 | US ---
EXAMINATION TYPE: US thyroid st tissue head/neck DATE OF EXAM: 09/05/2022 COMPARISON: CT Angio head neck for a 09/04/2022 CLINICAL HISTORY: left parotid mass, no biopsy needed at the moment. left parotid mass TECHNIQUE: Color Doppler and vascular imaging of the left parotid gland. FINDINGS: In the left deep parotid gland is a hypoechoic mass correlating with prior CT Angio neck m easuring 1.7 x 1.7 x 1.7cm IMPRESSION: Left parotid mass measuring up to 1.7 cm on ultrasound and up to 2.[address] The differential is ra ther broad, could represent War[place] gland tumor versus pleomorphic adenoma versus malignancy, tissue sampling and ENT consultation recommended.
[2022-09-05] MEDS ORDERED: ASPIRIN 81 MG PO STA (21:29)
[2022-09-05 22:15] LABS: Chol/HDL Ratio 4.21 Ratio; LDL Cholesterol,Calculated 98.5 mg/dL (0.0-131.0); VLDL Calculation 18.92 mg/dL (5.00-40.00)
[2022-09-06] MEDS ORDERED: LEVOTHYROXINE 75 MCG TAB PO SCH (06:30)
[2022-09-06 08:00] VITALS: RESP 16; TEMP 97.4
[2022-09-06] MEDS: HEPARIN SODIUM,PORCINE/PF 5,000 UNIT/0.5 ML SYRINGE SQ SCH ×2 (08:41→17:03)
[2022-09-06] MEDS ORDERED: PANTOPRAZOLE 40 MG TABLET PO SCH (09:00)
[2022-09-06] MEDS ORDERED: FERROUS SULFATE 325 MG TAB PO SCH (09:00)
[2022-09-06] MEDS ORDERED: MAGNESIUM OXIDE 400 MG TAB PO SCH (09:00)
[2022-09-06] MEDS ORDERED: CALCIUM CARBONATE 500 MG CHEWABLE PO SCH (09:00)
[2022-09-06] MEDS ORDERED: CYANOCOBALAMIN 500 MCG TAB PO SCH (09:00)
[2022-09-06] MEDS ORDERED: CLOPIDOGREL 75 MG TAB PO SCH (10:45)
[2022-09-06] MEDS ORDERED: ASPIRIN 81 MG PO SCH (10:45)
--- NOTE | 2022-09-06 10:50 | P.CNNES ---
History of Present Illness Consult date: 09/06/22 Requesting physician: Laura Montez Reason for Consult: vertigo, vbi History of Present Illness: This is a 72-year-old woman who presented emergency department because of the dizziness. She stated that since this past Tuesday she's been having very severe dizziness that happened at nighttime and she felt the room is spinning and was feeling hot and cold as well as having the vision that is a she felt as foggy. She denies any nausea any vomiting any focal weakness numbness difficulty swallowing difficulty getting her words out. She felt her dizziness is worse with the movement and better with resting. She did have dizziness in the past but not to this extreme. She is some assistance her to make sure she doesn't fall. She denies any recent sickness or head trauma or falls. She denies any history of stroke or TIA. She denies being on any antiplatelet. She feels her dizziness is drastically better compared to initial presentation. Some other workup during this hospital visit consisted of: During this hospital visit she's been hypertensive initial blood pressure 179/99 but it is improving. Orthostatic vitals are negative. The panel is triglyceride 94, cholesterol is 154, LDL is 98 and HDL is 36 TSH is 0.9[address] is 5.6. CT of the brain is reported as no acute hemorrhage or mass effect. Concern for acute ischemia correlate with MRI as clinically warranted. CT angiography of the head and neck was reported as markedly diminutive vertebrobasilar system could be associate with vertebrobasilar insufficiency correlate clinically. 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 Bilateral KIRSTIE appears to be supplied from left circulation. Bilateral carotid bifurcations are widely patent. No significant stenosis. There is 2 cm left parotid gland mass. Ultrasound is recommended as well as ENT correlation for neoplasm. Review of Systems Review of system: The 12 point system was reviewed and apparent positive and negative per HPI. Past Medical History Past Medical History: GERD/Reflux, Thyroid Disorder History of Any Multi-Drug Resistant Organisms: None Reported Past Surgical History: Bariatric Surgery, Hysterectomy, Orthopedic Surgery, Tonsillectomy Additional Past Surgical History / Comment(s): right hip, left shoulder Past Anesthesia/Blood Transfusion Reactions: No Reported Reaction Past Psychological History: No Psychological Hx Reported Smoking Status: Never smoker Past Alcohol Use History: None Reported Past Drug Use History: None Reported - Past Family History Mother Family Medical History: Coronary Artery Disease (CAD) Medications and Allergies Home Medications Medication Instructions Recorded Confirmed Type Ferrous Sulfate [Feosol] 325 mg PO DAILY 10/22/20 09/04/22 History Levothyroxine Sodium [Synthroid] 150 mcg PO DAILY 10/22/20 09/04/22 History Omeprazole 20 mg PO DAILY 10/22/20 09/04/22 History Calcium Carbonate [Calcium] 600 mg PO DAILY 09/04/22 09/04/22 History Cyanocobalamin (Vitamin B-12) 1,000 mcg PO DAILY 09/04/22 09/04/22 History [Vitamin B-12] Magnesium Oxide [Mag-Ox] 400 mg PO DAILY 09/04/22 09/04/22 History Allergies Allergy/AdvReac Type Severity Reaction Status Date / Time tb skin test Allergy Swelling Uncoded 09/04/22 17:56 Physical Examination - Vital Signs Vital Signs: Vital Signs Temp Pulse Pulse Resp BP BP BP 09/06/22 07:00 97.4 F L 71 16 139/88 09/06/22 02:00 97.5 F L 64 15 128/68 09/05/22 19:51 97.4 F L 80 15 142/86 09/05/22 15:00 97.5 F L 63 18 181/82 Pulse Ox 09/06/22 07:00 96 09/06/22 02:00 97 09/05/22 19:51 97 09/05/22 15:00 97 Intake and Output 09/05/22 09/06/22 09/06/22 22:59 06:59 14:59 Intake Total 70 Balance 70 Intake: Oral 70 Other: Voiding Method Toilet # Voids 1 2 GENERAL: The patient is lying in bed and is not in acute distress. CHEST: The heart rate is regular rate rhythm. No murmurs to auscultation. LUNG: Clear to auscultation bilaterally no wheezing noted throughout. Not labored breathing. ABDOMEN/GI: Bowel sounds present in all 4 quadrants. No tenderness to palpation throughout. NEUROLOGICAL: Higher mental function: The patient is awake, alert, oriented to self, place and time. Patient is following commands. No aphasia and no neglect. Cranial nerves: The pupils are round, equal and reactive to light and accommodation. Visual lora are full to confrontation throughout. Extraocular movement is intact no nystagmus is noted. Facial sensation is normal to touch throughout. The facial strength is normal throughout. Hearing is normal bilaterally to hand rub. Tongue is midline and moved [id number] without any difficulty. No dysarthria is noted. Shoulder shrug is normal bilaterally. Motor: Gait is normal for her baseline and not leaning towards one side or other and did not require any assistance walking.. The strength is 5 over 5 throughout. Normal tone and bulk. Cerebellum: Normal finger to nose bilaterally. Sensation: Sensation is normal to touch throughout. Reflexes (right/left):2+ uppers while lowers are 1+. Plantars are downgoing bilaterally. 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 Walden and pending. I ordered MRA head and neck to assess vessel images in comparison to CTA. I started the patient on ASA 81mg and Plavix 75mg daily. 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 Recommend patient to follow-up with interventional neurology team as outpatient for her vertebobasilar stenosis as outpatient. I placed on discharge to follow- up with Dr. Sierra within 1-2 weeks. Regarding parotid mass, defer to ENT. The plan is discussed with patient and her daughter who is at bedside. Thank you for the consultation. Time with Patient: Greater than 30
--- NOTE | 2022-09-06 13:35 | P.PN ---
Subjective Progress Note Date: 09/06/22 Hospital Course: 72-year-old female with a PMH of hypothyroidism and GERD who presented to the emergency room with complaints of gradually worsening dizziness. CT angiogram of head and neck in the emergency room revealed diminutive vertebrobasilar system which could be associated with vertebrobasilar insufficiency. There was also a 2 cm left parotid gland mass with ultrasound recommended. EKG revealed sinus bradycardia at 52 bpm with sinus arrhythmia and first-degree AV block as re viewed by me. Laboratory evaluation was remarkable for WBC count of 6.0, hemoglobin 13.9, platelets 179, sodium 141, potassium 3.3, chloride 117, CO2 21, alk phos 35, albumin 2.4, with ionized calcium 5.1. Neurology consulted. MRI and MRA pending, echo pending. ENT also consulted, pending evaluation. Subjective: Patient seen and examined at bedside. Occasionally still gets dizzy while rest ing. She denies any chest pain, shortness of breath, abdominal pain, urinary or bowel complaints. Pertinent positives and negatives as discussed above, a complete review of systems was performed and all other systems are negative. Vitals Signs Reviewed. General: nontoxic, no distress, appears at stated age Derm: warm, dry Head: atraumatic, normocephalic, symmetric Eyes: EOMI, no lid lag, anicteric sclera Mouth: no lip lesion, mucus membranes moist Cardiovascular: S1S2 reg, no murmur Lungs: CTA bilateral, no rhonchi, no rales , no accessory muscle use Abdominal: soft, nontender to palpation, no guarding, no appreciable organomegaly Ext: no gross muscle atrophy, no edema, no contractures Neuro: CN II-XI grossly intact, no focal neuro deficits Psych: Alert, oriented, appropriate affect Data Reviewed Today: Pertinent Labs: total cholesterol 154, LDL is 98.5, TSH 0.973, A1c 5.6 Left parotid ultrasound showed 1.7 cm mass, with broad differential including warthin tumor, pleomorphic adenoma versus malignancy Assessment and Plan: Active: Dizziness, suspect secondary to vertebrobasilar insufficiency Parotid gland mass -Neurology note reviewed, started on aspirin and Plavix, Lipitor, pending MRI, MRA, echo, likely will need interventional neurology outpatient follow-up -ENT also consulted, pending recommendations Resolved: Hypokalemia Metabolic acidosis Chronic: Hypothyroidism, GERD DVT ppx: Subcu heparin Code status: Full code Anticipated discharge place: Home Anticipated discharge time: Likely tomorrow Objective - Vital Signs Vital signs: Vital Signs Temp 97.4 F L 09/06/22 07:00 Pulse 71 09/06/22 07:00 Resp 16 09/06/22 07:00 BP 139/88 09/06/22 07:00 Pulse Ox 96 09/06/22 07:00 FiO2 Intake & Output 09/05/22 09/06/22 09/06/22 18:59 06:59 18:59 Intake Total 70 Balance 70 Intake: Oral 70 Other: Voiding Method Toilet # Voids 5 2 - Labs CBC & Chem 7: 09/05/22 07:40 09/05/22 07:40 Labs: Abnormal Lab Results - Last 24 Hours (Table) 09/05/22 Range/Units 07:40 HDL Cholesterol 36.60 L (40.00-60.00) mg/dL
--- NOTE | 2022-09-06 14:27 | CA ---
Transthoracic Echo Report Name: Erika Montelongo Age: 72 Gender: F : 1950 Exam Date: 09/06/2022 07:59 Exam Location: [facility] Ht (in): 65 Wt (lb): 205 Ordering Physician: Sofya Walden DO Attending/Referring Phys: Business Office Specialist Ashley Thomas RDCS Procedure CPT: Indications: dizziness, bradycardia, posterior circulation stro Cardiac Hx: Technical Quality: Good Contrast 1: Total Dose (mL): Contrast 2: Total Dose (mL): MEASUREMENTS (Male / Female) Normal Values 2D ECHO LV Diastolic Diameter PLAX 4.6 cm 4.2 - 5.9 / 3.9 - 5.3 cm LV Systolic Diameter PLAX 3.3 cm IVS Diastolic Thickness 1.2 cm 0.6 - 1.0 / 0.6 - 0.9 cm LVPW Diastolic Thickness 1.1 cm 0.6 - 1.0 / 0.6 - 0.9 cm LV Relative Wall Thickness 0.5 RV Internal Dim ED PLAX 3.1 cm LA Systolic Diameter LX 3.5 cm 3.0 - 4.0 / 2.7 - 3.8 cm LV Diastolic Volume MOD 4C 75.3 cm??? LV Systolic Volume MOD 4C 34.5 cm??? LV Ejection Fraction MOD 4C 54.3 % LV Diastolic Length 4C 7.6 cm LV Systolic Length 4C 6.3 cm LV Diastolic Volume MOD 2C 54.3 cm??? LV Systolic Volume MOD 2C 24.5 cm??? LV Ejection Fraction MOD 2C 55.0 % LV Diastolic Length 2C 7.8 cm LV Systolic Length 2C 6.3 cm LA Volume 52.0 cm??? 18 - 58 / 22 - 52 cm??? M-MODE Aortic Root Diameter MM 3.3 cm MV E Point Septal Separation 0.5 cm AV Cusp Separation MM 2.1 cm DOPPLER AV Peak Velocity 110.0 cm/s AV Peak Gradient 4.8 mmHg MV Area PHT 2.2 cm??? Mitral E Point Velocity 57.2 cm/s Mitral A Point Velocity 70.2 cm/s Mitral E to A Ratio 0.8 MV Deceleration Time 342.0 ms MV E' Velocity 4.9 cm/s Mitral E to MV E' Ratio 11.6 FINDINGS Left Ventricle Left ventricular ejection fraction is estimated at 50-55 %. Left ventricular cavity size normal. No obvious regional wall motion abnormalities. Mildly increased septal wall thickness. Mildly increased posterior wall thickness. Right Ventricle Normal right ventricular size and function. No TR unable to estimate the right ventricular systolic pressure. Right Atrium Normal right atrial size. Left Atrium Normal left atrial size. Mitral Valve Mitral valve not well visualized. No mitral stenosis, regurgitation or prolapse. Aortic Valve Trileaflet aortic valve. No aortic valve stenosis or regurgitation. Tricuspid Valve Structurally normal tricuspid valve. No tricuspid stenosis, regurgitation or prolapse. Pulmonic Valve Structurally normal pulmonic valve. No pulmonic regurgitation. Pericardium No pericardial effusion. Normal pericardium. Aorta Normal size aortic root and proximal ascending aorta. CONCLUSIONS Normal LV size and systolic function Normal RV size and function No obvious intracardiac masses Previewed by: Dr. Karsten Mena MD (Electronically Signed) Final Date: 06 September 2022 14:27
[2022-09-06 14:33] VITALS: BP 149/84; PULSE 67
--- NOTE | 2022-09-06 15:51 | MR ---
EXAMINATION TYPE: MR brain wo con DATE OF EXAM: 09/06/2022 COMPARISON: CT brain for a 23 HISTORY: Dizziness, posterior circulation stroke. CONTRAST: Performed utilizing 0 mL intravenous Gadavist gadolinium contrast. TECHNIQUE: Multiplanar, multiecho imaging on a 3.0 Bri magnet is performed through the brain. Stud y is performed within 24 hours of arrival to the hospital. The craniovertebral junction is normal. The pituitary is normal. Diffusion-weighted imaging is performed. No abnormal hyperintensity is present to suggest an acute i ntracranial infarct or acute ischemic change. There are a few scattered T2 and inversion recovery weighted hyperintensities within the deep white m atter. These are nonspecific but can be related to chronic white matter ischemic changes. Ventricles and sulci are appropriate for the patient age. There may be a 1.9 cm lymph node in the deep left parotid region. Example image 501 image 5. This rebecca ears somewhat lobular on the coronal T2-weighted images. Right A1 segment is absent. The right posterior communicating artery is widely patent. The anterior c ommunicating artery is patent. IMPRESSIONS: 1. Chronic appearing scattered white matter ischemic type changes. 2. 1.9 cm lobular mass deep left parotid gland. Additional workup for neoplasm is recommended.
--- NOTE | 2022-09-06 15:54 | MR ---
EXAMINATION TYPE: MR angio head wo/neck wo/w con DATE OF EXAM: 09/06/2022 COMPARISON: HISTORY: Dizziness, posterior circulation stroke. CONTRAST: None TECHNIQUE: Multiplanar multiecho imaging on a 3.0 Bri magnet is performed through the [facility]. 3-D [id number] imaging is performed. Source images are reviewed on the computer in the axi al plane. Reconstructed images rotating on the computer are reviewed. FINDINGS: The left internal carotid artery bifurcates normally into A1 and M1 segments. The A2 segme nts are normal. Anterior communicating artery is patent. The right internal carotid artery terminates in the middle cerebral artery. Right A1 segment is absen t. Middle cerebral artery branches appear normal Anterior communicating artery is patent. The right posterior communicating artery is widely patent. The left posterior communicating artery is patent. Vertebrobasilar arteries within the [id number] are normal. Vertebral arteries are codominant. Pos terior cerebral vasculature is normal. No suspicious aneurysm or aneurysmal dilatation is evident. No obstructions are identified. No sign ificant flow-limiting stenosis is evident. IMPRESSIONS: 1. Absent right A1 segment. Normal alternative flow is present.
--- NOTE | 2022-09-06 17:11 | P.DS ---
Providers Date of admission: 09/04/22 21:39 Expected date of discharge: 09/06/22 Attending physician: Jaki Ferguson MD Consults: 09/04/22 21:50 Consult Physician Urgent Consulting Provider: Sofya Walden Consult Reason/Comments: vertigo, vbi Do you want consulting provider notified?: Yes Consult Physician Urgent Consulting Provider: Cabrera Wright Consult Reason/Comments: parotid mass Do you want consulting provider notified?: Yes Primary care physician: Dom [facility]dom[facility]ank [place] [facility] Course: Discharge Diagnosis: Vertigo Parotid gland mass Hypokalemia Metabolic acidosis Hyperthyroidism GERD Hospital Course: 72-year-old female with a PMH of hypothyroidism and GERD who presented to the emergency room with complaints of gradually worsening dizziness. CT angiogram of head and neck in the emergency room revealed diminutive vertebrobasilar system which could be associated with vertebrobasilar insufficiency. There was also a 2 cm left parotid gland mass with ultrasound recommended. EKG revealed sinus bradycardia at 52 bpm with sinus arrhythmia and first-degree AV block as reviewed by me. Laboratory evaluation was remarkable for WBC count of 6.0, hemoglobin 13.9, platelets 179, sodium 141, potassium 3.3, chloride 117, CO2 21, alk phos 35, albumin 2.4, with ionized calcium 5.1. Neurology consulted. Echocardiogram showed normal LV and RV function. Brain MRI showed chronic appearing scattered white matter ischemic type changes, also seen 1.9 centimeter lobular mass deep left parotid gland. Head and neck MRA showed absent right A1 segment, normal alternative flow is present, vertebrobasilar arteries were normal. Patient needs outpatient neurology follow-up. Neurology discharged patient on DAPT and statin. Patient to also see ENT as an outpatient. Patient seen and examined at bedside. Vital signs reviewed and stable. General: nontoxic, no distress, appears at stated age Derm: warm, dry Head: atraumatic, normocephalic, symmetric Eyes: EOMI, no lid lag, anicteric sclera Mouth: no lip lesion, mucus membranes moist Cardiovascular: S1S2 reg, no murmur Lungs: CTA bilateral, no rhonchi, no rales , no accessory muscle use Abdominal: soft, nontender to palpation, no guarding, no appreciable organomegaly Ext: no gross muscle atrophy, no edema, no contractures Neuro: CN II-XI grossly intact, no focal neuro deficits Psych: Alert, oriented, appropriate affect A total of 37 minutes of time were spent preparing this complex discharge summary. Patient was discharged on 09/06/22 at 1710. Patient Condition at Discharge: Stable Plan - Discharge Summary Discharge Rx Participant: No New Discharge Prescriptions: New Atorvastatin [Lipitor] 40 mg PO HS #90 tab Meclizine [Antivert] 25 mg PO TID PRN #90 tab PRN Reason: Vertigo Aspirin 81 mg PO DAILY #90 tab Clopidogrel [Plavix] 75 mg PO DAILY #30 tab Continue Omeprazole 20 mg PO DAILY Levothyroxine Sodium [Synthroid] 150 mcg PO DAILY Calcium Carbonate [Calcium] 600 mg PO DAILY Cyanocobalamin (Vitamin B-12) [Vitamin B-12] 1,000 mcg PO DAILY Ferrous Sulfate [Iron (65 MG Elemental)] 325 mg PO DAILY Magnesium Oxide [Mag-Ox] 400 mg PO DAILY Discharge Medication List Ferrous Sulfate [Iron (65 MG Elemental)] 325 mg PO DAILY 10/22/20 [History] Levothyroxine Sodium [Synthroid] 150 mcg PO DAILY 10/22/20 [History] Omeprazole 20 mg PO DAILY 10/22/20 [History] Calcium Carbonate [Calcium] 600 mg PO DAILY 09/04/22 [History] Cyanocobalamin (Vitamin B-12) [Vitamin B-12] 1,000 mcg PO DAILY 09/04/22 [History] Magnesium Oxide [Mag-Ox] 400 mg PO DAILY 09/04/22 [History] Aspirin 81 mg PO DAILY #90 tab 09/06/22 [Rx] Atorvastatin [Lipitor] 40 mg PO HS #90 tab 09/06/22 [Rx] Clopidogrel [Plavix] 75 mg PO DAILY #30 tab 09/06/22 [Rx] Meclizine [Antivert] 25 mg PO TID PRN #90 tab 09/06/22 [Rx] Follow up Appointment(s)/Referral(s): William Sierra MD [STAFF PHYSICIAN] - 1 Week (vertebrobasilar insufficiency) Guillermot[facility]Physician [REFERRING] - 1 Week Cabrera Wright MD [STAFF PHYSICIAN] - 1 Week Patient Instructions/Handouts: Vertigo (DC) Activity/Diet/Wound Care/Special Instructions: Please see your PCP and neurology as soon as possible. Also see ENT for parotid mass. Discharge Disposition: HOME SELF-CARE
[2022-09-06] MEDS ORDERED: ATORVASTATIN 40 MG TAB PO SCH (21:00)
== END 2022-09-06 18:38 | disposition home or self-care (01) ==
LOC: EC 16:45 → 6NMEDSUR 21:39
PROVIDERS: ADMIT Internal Medicine; ATTEND Internal Medicine
DX: R42 Dizziness and giddiness (principal); K11.8 Other diseases of salivary glands; E87.6 Hypokalemia; E87.20 Acidosis, unspecified; I49.9 Cardiac arrhythmia, unspecified; K21.9 Gastro-esophageal reflux disease without esophagitis; E03.9 Hypothyroidism, unspecified; I44.0 Atrioventricular block, first degree; E66.9 Obesity, unspecified; Z68.34 Body mass index [BMI] 34.0-34.9, adult; Z79.890 Hormone replacement therapy; Z79.899 Other long term (current) drug therapy; Z88.8 Allergy status to other drugs, medicaments and biological substances; Z90.710 Acquired absence of both cervix and uterus; Z98.84 Bariatric surgery status; Z98.890 Other specified postprocedural states; Z82.49 Family history of ischemic heart disease and other diseases of the circulatory system
CPT/HCPCS: 96372 ×2; 96360; 96361; 99285; 36415; 93005; 93306; 80061; 80053; 80048; 84443; 82330; 84484; 85025 ×2; 85610; 83036; 76536; 70496; 70450; 70498; 70544; 70549; 70551; G0378 ×3; A9585; Q9967; J1644 ×2

== ENCOUNTER → 2023-06-02 | Outpatient (CLI) | payer MEDICARE ==
--- NOTE | 2023-06-03 08:20 | CT ---
EXAMINATION TYPE: CT abdomen wo con DATE OF EXAM: 06/02/2023 HISTORY: Diarrhea, weight loss, history of twisted bowel CT DLP: 526 mGycm. Automated Exposure Control for Dose Reduction was Utilized. TECHNIQUE: CT scan of the abdomen is performed without oral or IV contrast. COMPARISON: NONE FINDINGS: Within the limitations of a non-contrast study, the following observations are made. LUNG BASES: No significant abnormality is appreciated. LIVER/GB: No significant abnormality is appreciated. PANCREAS: Portion of the pancreas extends into the lower thorax through hiatal hernia. SPLEEN: There is near 1.1 cm rounded low dense lesion posterior spleen axial image 14. Surgical clips with streak artifact left upper quadrant noted axial image 19. ADRENALS: No significant abnormality is seen. KIDNEYS: No significant abnormality is seen. BOWEL: Moderate to large size hiatal hernia. There is 2.7 cm duodenal diverticulum along the second p ortion coronal image 41 incidentally noted. No abnormal small or large bowel dilatation. LYMPH NODES: No greater than 1cm abdominal lymph nodes are appreciated. OSSEOUS STRUCTURES: Vertebroplasty at L3 level is present at site of mild chronic compression. Modera te to severe narrowing and vacuum disc phenomenon at L4-L5 level. Osseous structures are demineralize d. OTHER: Horizontal oriented sutures in the mid abdomen along the rectus sheath are noted. Just inferio r to this there is focal eventration containing mesenteric fat and nondilated small bowel loop. IMPRESSION: No acute findings are seen.
== END | disposition home or self-care (01) ==
LOC: RADCTMAIN 08:59
PROVIDERS: ATTEND Family Medicine
DX: R63.4 Abnormal weight loss (principal); R19.7 Diarrhea, unspecified
CPT/HCPCS: 74150

== ENCOUNTER → 2023-12-26 | Outpatient (CLI) | payer MEDICARE ==
--- NOTE | 2023-12-26 14:09 | MR ---
EXAMINATION TYPE: MR shoulder RT wo con DATE OF EXAM: 12/26/2023 1:46 PM COMPARISON: NONE HISTORY: NO prior, right shoulder and upper arm pain, loss in ROM for 3-4 months , PT not helping, no injury TECHNIQUE: Multiplanar multispin echo imaging of the right shoulder was performed. FINDINGS: Rotator cuff : There is increased signal within the supraspinatus tendon at its critical zone compati ble with intrasubstance tear. No evidence for full-thickness tear. Remaining constituents of the rota tor cuff are grossly intact. Bursa: No bursal effusion or thickening is seen. Musculature: There is no muscular tear, contusion, or atrophy. Acromioclavicular joint : There is AC joint arthropathy with subacromial spurring resulting in modera te impingement. Osseous structures : There are no fractures or regions of abnormal bone marrow signal intensity. Long biceps tendon : The biceps tendon is normally situated within the bicipital groove. No complete or partial biceps tendon tear is present. Glenohumeral Joint fluid : There is no glenohumeral joint effusion. Cartilage and Bone : No focal hyaline cartilage defects are noted. No Hill-Sachs, reverse Hill-Sachs, or bony Bankart lesions are seen. Labrum : There are no SLAP or soft tissue Bankart lesions. No paralabral cysts are seen. OTHER FINDINGS : none IMPRESSION: 1. There is increased signal within the supraspinatus tendon at its critical zone compatible with int rasubstance tear. No evidence for full-thickness tear. 2. Moderate subacromial impingement.
== END | disposition home or self-care (01) ==
LOC: RADMRIMAIN 12:50
PROVIDERS: ATTEND Orthopaedic Surgery
DX: M25.811 Other specified joint disorders, right shoulder (principal)

== ENCOUNTER → 2024-04-30 | Outpatient (CLI) | payer MEDICARE ==
--- NOTE | 2024-05-01 12:50 | MM ---
Reason for Exam: Screening (asymptomatic). Last mammogram was performed 1 year(s) and 4 month(s) ago. Patient History: Menarche at age 11. First Full-Term at age 22. Hysterectomy at age 35. Risk Values: Marga 5 year model risk: 1.7%. NCI Lifetime model risk: 4.3%. Prior Study Comparison: 12/18/2021 Bilateral Screening Mammogram, [facility]. 12/29/2022 Bilateral Screening Mammogram, [facility]. Tissue Density: There are scattered areas of fibroglandular density. Findings: Analyzed By CAD. Microclip left breast from prior biopsy. Chronic nodularity on the right. There is no suspicious group of microcalcifications or new suspicious mass in either breast. Overall Assessment: Negative, BI-RAD 1 Management: Screening Mammogram of both breasts in 1 year. Patient should continue monthly self-breast exams. A clinical breast exam by your physician is recommended on an annual basis. This exam should not preclude additional follow-up of suspicious palpable abnormalities. Note on Marga scores and lifetime risk: 1. A Marga score greater than 3% is considered moderate risk. If this is the case, consider specialist referral to assess eligibility for a risk reducing agent. 2. If overall lifetime risk for the development of breast cancer is 20% or higher, the patient may qualify for future screening with alternating mammogram and breast MRI. [facility], , 05/01/2024 12:42 PM. Electronically signed and approved by: Rekha Osuna M.D. Radiologist
== END | disposition home or self-care (01) ==
LOC: RADMAMWWP 10:36
PROVIDERS: ATTEND Family Medicine
DX: Z12.31 Encounter for screening mammogram for malignant neoplasm of breast (principal); R92.323 Mammographic fibroglandular density, bilateral breasts
CPT/HCPCS: 77067